=== PATIENT | male | born 1945 | race African-American/Black ===

== ENCOUNTER 2020-12-29 08:49 | Inpatient (IN) | payer OTHER, BC ==
[2020-12-29] MEDS ORDERED: LACTATED RINGERS SOLUTION 1000 ML INFUS.BAG IV ONE (09:45)
[2020-12-29 10:31] LABS: BASO % 0.2 % (0-2.0); HEMATOCRIT 47.1 % (35.4-49); HEMOGLOBIN 16.2 GM/dL (11.7-16.9); LYMPH % 6.7 % (8-40); MCH 30.5 pg (25.7-33.7); MCHC 34.4 g/dl (32.0-35.9); MEAN CELL VOLUME 88.8 fl (80-96); MEAN PLT VOLUME 11.1 fl (7.5-11.1); NEUT % 89.1 % (42.8-82.8); PLATELET COUNT 238 K/MM3 (134-434); RDW 13.2 % (11.9-15.9); WHITE BLOOD COUNT 10.3 K/mm3 (4.0-10.0)
[2020-12-29 10:37] LABS: VENOUS BASE EXCESS 0.4 mmol/L (-2-2); VENOUS O2 SATURATION 73.3 % (70-80); VENOUS PCO2 47.1 mmHg (38-52); VENOUS PH 7.366 (7.310-7.410)
[2020-12-29 10:38] LABS: INR 0.97 (0.83-1.09)
[2020-12-29 10:57] LABS: ALBUMIN 4.1 g/dl (3.4-5.0); BLOOD UREA NITROGEN 13.9 mg/dL (7-18); CALCIUM 9.7 mg/dL (8.5-10.1)
[2020-12-29 11:00] LABS: CREATININE 1.2 mg/dL (0.55-1.3)
[2020-12-29 11:02] LABS: BILIRUBIN,TOTAL 0.6 mg/dL (0.2-1); TOT PROT 8.6 g/dl (6.4-8.2)
[2020-12-29 11:06] LABS: POTASSIUM 8.5 mmol/L (3.5-5.1)
[2020-12-29 12:34] LABS: POTASSIUM 3.9 mmol/L (3.5-5.1)
[2020-12-29 12:36] LABS: CALCIUM 10.1 mg/dL (8.5-10.1)
[2020-12-29 12:37] LABS: BLOOD UREA NITROGEN 11.7 mg/dL (7-18)
[2020-12-29 12:40] LABS: CREATININE 1.1 mg/dL (0.55-1.3)
[2020-12-29] MEDS ORDERED: RAMIPRIL 5 MG CAPSULE PO ONE (13:44)
[2020-12-29] MEDS ORDERED: MORPHINE SULFATE 2 MG/ML VIAL IVPUSH PRN ×2 (14:04→18:20)
[2020-12-29] MEDS ORDERED: RAMIPRIL 5 MG CAPSULE ONE (14:30)
[2020-12-29] MEDS ORDERED: MIDAZOLAM HCL 2 MG/2 ML SINGLE DOSE VIAL ONE (15:15)
[2020-12-29] MEDS ORDERED: PROPOFOL 20 ML ONE ×3 (15:15→16:53)
[2020-12-29] MEDS ORDERED: LIDOCAINE HCL/PF 2% SDV 5ML VIAL ONE (15:15)
[2020-12-29] MEDS ORDERED: ROCURONIUM BROMIDE 100 MG/10 ML VIAL ONE (15:16)
[2020-12-29] MEDS ORDERED: SUCCINYLCHOLINE CHLORIDE 200 MG/10 ML SYRINGE ONE (15:16)
[2020-12-29] MEDS ORDERED: LIDOCAINE HCL 1%, 10 MG/ML (20ML VIAL) ONE (16:02)
[2020-12-29] MEDS ORDERED: ceFAZolin SODIUM 1 GM VIAL IVPB ONE (16:23)
[2020-12-29] MEDS ORDERED: ceFAZolin SODIUM 1 GM VIAL ONE (16:25)
[2020-12-29] MEDS ORDERED: BUPIVACAINE HCL/PF 0.5% (5 MG/ML) 30 ML VIAL IJ ONE ×2 (16:37)
[2020-12-29] MEDS ORDERED: LIDOCAINE HCL 1%, 10 MG/ML (20ML VIAL) NR ONE ×2 (16:37)
[2020-12-29] MEDS ORDERED: KETOROLAC TROMETHAMINE 30 MG/1 ML VIAL ONE (16:41)
[2020-12-29] MEDS ORDERED: ONDANSETRON 4 MG/2 ML VIAL ONE (16:41)
[2020-12-29] MEDS ORDERED: DEXAMETHASONE SOD PHOSPHATE 4 MG/1 ML VIAL ONE (16:41)
[2020-12-29] MEDS ORDERED: NEOSTIGMINE METHYLSULFATE 0.5 MG/ML - 10 ML MDV ONE (16:52)
[2020-12-29] MEDS ORDERED: GLYCOPYRROLATE 0.2 MG/1 ML VIAL ONE (16:53)
[2020-12-29] MEDS ORDERED: ONDANSETRON 4 MG/2 ML VIAL IVPUSH PRN ×2 (17:53→18:06)
[2020-12-29] MEDS ORDERED: PROMETHAZINE HCL 25 MG/1 ML VIAL IVPUSH PRN (17:53)
[2020-12-29] MEDS ORDERED: LACTATED RINGERS SOLUTION 1,000 ML IV SCH ×2 (18:00→18:20)
[2020-12-29] MEDS ORDERED: oxyCODONE HCL 5 MG TABLET PO PRN (18:05)
[2020-12-29 20:44] VITALS: BMI 22.1
[2020-12-29] MEDS: ACETAMINOPHEN 325 MG TABLET (FP) PO SCH (22:14)
[2020-12-30] MEDS: ACETAMINOPHEN 325 MG TABLET (FP) PO SCH ×2 (05:38→14:32)
[2020-12-30] MEDS ORDERED: ACETAMINOPHEN 325 MG TABLET (FP) PO PRN (06:00)
[2020-12-30] MEDS ORDERED: RAMIPRIL 5 MG CAPSULE PO SCH ×2 (10:00)
[2020-12-30 10:16] LABS: BASO % 0.1 % (0-2.0); LYMPH % 8.4 % (8-40); MCH 30.8 pg (25.7-33.7); MCHC 34.9 g/dl (32.0-35.9); MEAN CELL VOLUME 88.1 fl (80-96); MONO % 9.9 % (3.8-10.2); NEUT % 81.6 % (42.8-82.8); PLATELET COUNT 211 K/MM3 (134-434); RBC 4.88 M/mm3 (4.00-5.60); RDW 13.2 % (11.9-15.9); WHITE BLOOD COUNT 9.5 K/mm3 (4.0-10.0)
[2020-12-30 10:36] LABS: POTASSIUM 4.3 mmol/L (3.5-5.1)
[2020-12-30 10:45] LABS: ALBUMIN 3.4 g/dl (3.4-5.0)
[2020-12-30 10:47] LABS: CREATININE 1.1 mg/dL (0.55-1.3)
[2020-12-30 10:48] LABS: BILIRUBIN,TOTAL 0.8 mg/dL (0.2-1)
[2020-12-30 10:52] LABS: CALCIUM 8.9 mg/dL (8.5-10.1); TOT PROT 6.4 g/dl (6.4-8.2)
[2020-12-30 13:31] VITALS: TEMP 98.6
[2020-12-30 13:32] VITALS: BP 142/80; PULSE 83
[2020-12-30] MEDS ORDERED: ENOXAPARIN NA (PORCINE) 40 MG/0.4 ML DISP.SYRIN SQ SCH ×2 (18:00)
== END 2020-12-30 14:28 | disposition home or self-care (01) | DRG 352 ==
LOC: JER 08:49 → JERBED 09:45 → J6S 20:07
PROVIDERS: ADMIT Internal Medicine; ATTEND Internal Medicine
PROC: 0YU50JZ Supplement Right Inguinal Region with Synthetic Substitute, Open Approach (ICD-10-PCS; principal; 2020-12-29 16:00)
DX: K40.30 Unilateral inguinal hernia, with obstruction, without gangrene, not specified as recurrent (principal); I10 Essential (primary) hypertension; R74.8 Abnormal levels of other serum enzymes; K59.09 Other constipation
CPT/HCPCS: 36415; 71045-TC-FY; 74176-TC; 80048; 80053; 82803; 83605; 85025; 85610; 85730; 88302-TC; 93005; 93010; 94760; 99285-25; C9803; U0003

== ENCOUNTER 2022-02-17 04:22 | Day surgery (SDC) | payer OTHER, BC ==
[2022-02-16 09:32] VITALS: BMI 20.7
[2022-02-17] MEDS ORDERED: LIDOCAINE HCL 1%, 10 MG/ML (20ML VIAL) ONE (12:54)
[2022-02-17] MEDS ORDERED: BUPIVACAINE HCL/PF 0.5% (5MG/ML) 10 ML VIAL ONE ×2 (12:54→13:00)
[2022-02-17] MEDS ORDERED: BUPIVACAINE LIPOSOME/PF (EXPAREL) 266 MG/20 ML VIAL ONE (13:00)
[2022-02-17] MEDS ORDERED: MIDAZOLAM HCL 2 MG/2 ML SINGLE DOSE VIAL ONE (13:01)
[2022-02-17] MEDS ORDERED: PROPOFOL 20 ML ONE (13:46)
[2022-02-17] MEDS ORDERED: ceFAZolin SODIUM 1 GM VIAL IVPB ONE (14:01)
[2022-02-17] MEDS ORDERED: KETOROLAC TROMETHAMINE 30 MG/1 ML VIAL IVPUSH ONE (15:09)
[2022-02-17] MEDS ORDERED: ACETAMINOPHEN 1000 MG/100 ML BAG IVPB ONE ×2 (15:10→15:16)
[2022-02-17] MEDS ORDERED: oxyCODONE HCL 5 MG TABLET PO PRN (15:12)
[2022-02-17] MEDS ORDERED: ONDANSETRON 4 MG/2 ML VIAL IVPUSH PRN (15:12)
[2022-02-17] MEDS ORDERED: LACTATED RINGERS SOLUTION 1,000 ML IV SCH (15:15)
[2022-02-17] MEDS ORDERED: KETOROLAC TROMETHAMINE 30 MG/1 ML VIAL ONE (15:16)
[2022-02-17] MEDS ORDERED: ACETAMINOPHEN INJECTION 100 ML IVPB ONE (15:16)
[2022-02-17] MEDS ORDERED: KETOROLAC TROMETHAMINE 30 MG/1 ML VIAL IM ONE (15:17)
[2022-02-17] MEDS ORDERED: HYDROmorphone HCl 2 MG/ML VIAL IVPUSH PRN (15:22)
[2022-02-17] MEDS ORDERED: HYDROmorphone HCl 2 MG/ML VIAL ONE (15:24)
[2022-02-17] MEDS ORDERED: HYDROmorphone HCl 2 MG/ML VIAL IVPUSH ONE (15:45)
[2022-02-17] MEDS ORDERED: hydrALAZINE HCL 20 MG/ML VIAL IVPUSH ONE (16:35)
[2022-02-17] MEDS ORDERED: hydrALAZINE HCL 20 MG/ML VIAL IVPUSH PRN (16:36)
[2022-02-17 17:28] VITALS: TEMP 98
[2022-02-17 18:38] VITALS: BP 155/86; PULSE 89
== END 2022-02-17 19:15 | disposition home or self-care (01) ==
LOC: JASU-SURG 04:22
PROVIDERS: ATTEND Surgery
PROC: 0YU60JZ Supplement Left Inguinal Region with Synthetic Substitute, Open Approach (ICD-10-PCS; principal; 2022-02-17 13:30)
DX: K40.90 Unilateral inguinal hernia, without obstruction or gangrene, not specified as recurrent (principal)
CPT/HCPCS: 94760